=== PATIENT | female | born 1970 | race Caucasian/White ===

== ENCOUNTER → 2016-04-09 16:53 | Outpatient (CLI) | payer BC | END | disposition home or self-care (01) | LOC: D.MAMMO 10:30 | DX: N63 Unspecified lump in breast (principal) ==

== ENCOUNTER → 2017-10-07 22:07 | Outpatient (CLI) | payer BC | END | disposition home or self-care (01) | LOC: D.MAMMO 13:15 | DX: Z12.31 Encounter for screening mammogram for malignant neoplasm of breast (principal) ==

== ENCOUNTER → 2017-10-13 19:12 | Outpatient (CLI) | payer BC | END | disposition home or self-care (01) | LOC: D.SLEEP 19:12 | DX: G47.10 Hypersomnia, unspecified (principal); Z01.812 Encounter for preprocedural laboratory examination; Z53.9 Procedure and treatment not carried out, unspecified reason ==

== ENCOUNTER → 2017-12-03 13:40 | Outpatient (CLI) | payer BC | END | disposition home or self-care (01) | LOC: D.RAD 12-02 14:30 | DX: M67.439 Ganglion, unspecified wrist (principal) ==

== ENCOUNTER 2018-10-13 16:00 | Outpatient (CLI) | payer BC | END 2018-10-13 16:30 | disposition home or self-care (01) | LOC: D.MAMMO 16:00 | PROVIDERS: ATTEND Family Medicine | DX: Z12.31 Encounter for screening mammogram for malignant neoplasm of breast (principal) ==